=== PATIENT | female | born 1965 | race Caucasian/White ===

== ENCOUNTER 2020-04-05 11:18 | Emergency (ER) | payer OTHER, SELFPAY ==
[2020-04-05 11:30] VITALS: BP 106/60; PULSE 62; RESP 18; TEMP 36.6; O2SAT 100
--- NOTE | 2020-04-05 11:55 | ED.EAR ---
HPI - Ear Problem General Chief complaint: Ear Stated complaint: earache Source: patient and RN notes reviewed Mode of arrival: ambulatory Limitations: no limitations History of Present Illness HPI Narrative: 55-year-old female who presents to [facility] care with complaints of left ear pain which started yesterday and has increased thru the night and today. Patient states that she has pain and pressure to her left ear, rates pain a 5/10, denies any drainage from ears..Patient verbalizes no fevers, chills, or sweats, denies any sore throat or any cough MD Complaint: ear pain Related Data Home Medications Medication Instructions Recorded Confirmed atorvastatin 10 mg PO DAILY 04/05/20 04/05/20 chlordiazepoxide-clidinium 1 cap PO BID 04/05/20 04/05/20 Allergies Allergy/AdvReac Type Severity Reaction Status Date / Time codeine Allergy Intermediate THROAT Verified 04/05/20 11:52 SWELLS hydromorphone AdvReac Intermediate N/V Verified 04/05/20 11:53 Review of Systems Review of Systems: Narrative: CONSTITUTIONAL: Denies fever, chills, or sweats. EYES: Denies visual changes, redness, or discharge. ENT: Denies rhinorrhea, congestion, sore throat, positive left otalgia. CARDIOVASCULAR: Denies chest pain, palpitations, or edema. RESPIRATORY: Denies cough or dyspnea. GASTROINTESTINAL: Denies abdominal pain, nausea, vomiting, or diarrhea. GENITOURINARY: Denies dysuria or hematuria. SKIN: Denies rash or itching. MUSCULOSKELETAL: Denies back pain, joint pain, or myalgia. NEUROLOGIC: Denies headache, numbness, or weakness. PSYCHIATRIC: Denies anxiety or depression. All systems reviewed & are unremarkable except as noted in HPI and below [facility] Past Medical History Medical History (Updated 04/06/20 @ 18:35 by Meghana Vincent NP) GERD (gastroesophageal reflux disease) Pancreatic abnormality Post-menopausal Surgical History Surgical History (Updated 04/05/20 @ 12:00 by Meghana Vincent NP) H/O foot surgery H/O tubal ligation H/O: hysterectomy Hx of cholecystectomy Hx of tonsillectomy Social History Social History (Updated 04/05/20 @ 12:00 by Meghana Vincent NP) Smoking packs per day: 0.25 Smoking cigarettes per day: 5.0 Years smoked: 25 Smoking pack-years: 6.25 Smoking status: Current every day smoker Living arrangements: with family Gender identity (if verbalized by the patient): Female Comments At time of signature, agree with nursing past medical, surgical, social and family history. There is no relevant family history pertinent to the presenting complaint Exam Narrative: Exam Narrative: GENERAL: Well-appearing, well-nourished, and in no acute distress. HEAD: Normocephalic, atraumatic. EYES: PERRLA and EOMI. ENT: Nares clear, no rhinorrhea or epistaxis. Mucous membranes moist.left TM red and bulging, right TM normal with good light reflex, no throat pain or redness, no tonsil enlargement, NECK: Supple.no lymphadenopathy CHEST: Clear to auscultation. No respiratory distress.SAO2 100% on room air. HEART: Regular rate and rhythm. No murmur heard. Normal peripheral pulses. ABDOMEN: Soft, nontender, nondistended, normal active bowel sounds. EXTREMITIES: Normal range of motion. No edema. SKIN: Warm, dry, no rash. NEURO: No focal deficits. Alert and oriented x3. Course Vital Signs Vital signs: Vital Signs Temperature 36.6 C 04/05/20 11:30 Pulse Rate 62 04/05/20 11:30 Respiratory Rate 18 04/05/20 11:30 Blood Pressure 106/60 04/05/20 11:30 Pulse Oximetry 100 04/05/20 11:30 Temperature 36.6 C 04/05/20 11:30 Pulse Rate 62 04/05/20 11:30 Respiratory Rate 18 04/05/20 11:30 Blood Pressure 106/60 04/05/20 11:30 Pulse Oximetry 100 04/05/20 11:30 Medical Decision Making Medical Records Medical records reviewed: Yes I reviewed the patient's medical records. Vital Signs Vital Signs: Vital Signs Temperature 36.6 C 04/05/20 11:30 Pulse Rate 62
== END 2020-04-05 12:15 | disposition home or self-care (01) ==
PROVIDERS: Emergency Provider Registered Nurse; PCP Internal Medicine
DX: H66.92 Otitis media, unspecified, left ear (principal); F17.210 Nicotine dependence, cigarettes, uncomplicated; K21.9 Gastro-esophageal reflux disease without esophagitis
CPT/HCPCS: 99213; G0463

== ENCOUNTER 2020-06-28 16:47 | Outpatient (CLI) | payer OTHER, SELFPAY ==
--- NOTE | ~2020-06-28 | CT_ITS ---
EXAMINATION: CT lung screening DATE: 06/28/2020 17:43 INDICATION: Nicotine dependence TECHNIQUE: Computed tomography (CT) of the chest was performed without intravenous contrast. The dose -length product was 63.50 mGy-cm. Automated exposure control and iterative reconstruction technique w ere employed. COMPARISON: None FINDINGS: There is mild atherosclerosis. Heart size normal. No thoracic lymphadenopathy. No significa nt pleural or pericardial effusion. There are cholecystectomy clips. No endobronchial lesions. No foc al airspace consolidation. No pneumothorax. Calcified granuloma left apex. There is right apical pleu ral thickening/scarring. There is a 3 mm right lower lobe nodule, image 77. There is a calcified gran uloma in the right lower lobe. IMPRESSION: 1. Lung-RADS category 2: Benign appearance or behavior. Continue annual screening with noncontrast lo w-dose chest CT in 12 months. Reviewed, dictated and finalized at location A. [employer] IMPRESSION: 1. Lung-RADS category 2: Benign appearance or behavior. Continue annual screeni ng with noncontrast low-dose chest CT in 12 months.
== END 2020-06-28 16:48 | disposition home or self-care (01) ==
PROVIDERS: PCP Internal Medicine; Visit Provider Internal Medicine
DX: Z12.2 Encounter for screening for malignant neoplasm of respiratory organs (principal); Z87.891 Personal history of nicotine dependence
CPT/HCPCS: 71271